=== PATIENT | male | born 1950 | race Caucasian/White ===

== ENCOUNTER → 2016-06-23 | Day surgery (SDC) | payer MEDICARE ==
[~2016-06-23] VITALS: Ht 172.7 cm; Wt 64.5 kg
[~2016-06-23] MED LIST: ACETAMINOPHEN 500 MG CPLT PO PRN; ATROPINE SULFATE 1% OPHT SOLN 2 ML BTL ONE; BALANCED SALT SOLN OPHT IRRIG 15 ML BTL ONE; CHLORHEXIDINE GLUCONATE 2 % 1 PACK (2 CLOTHS) TOPICAL PRN; DEXAMETHASONE SOD PHOS 4 MG/ML VIAL ONE; DO NOT ADM ANY ANTICOAGULANT DRUGS PRN; EPINEPHrine HCL (1:1000) 1 MG/ML VIAL ONE; INSULIN HUMAN REGULAR 1,000 UNITS/10 ML VIAL SQ PRN; LACTATED RINGER'S 1000 ML INJ 1,000 ML IV ONE; LACTATED RINGER'S 1000 ML IV PRN; MACR100C2 PO; METOPROLOL TARTRATE 25 MG TAB PO PRN; ONDANSETRON HCL 4 MG/2 ML VIAL IM PRN; POVIDONE IODINE 5% (ANTISEPSIS KIT) 4 APPLICATIONS EACH NARE PRN; PROPOFOL 200 MG/20 ML AMP IV ONE; SODIUM CHLORID 0.9% 500 ML IV PRN; STERILE WATER FOR INJ 20 ML VIAL ONE; TOBRAMYCIN/DEXAMETHASONE OPTH OINT 3.5 GM TUBE ONE; TRIAMCINOLONE ACETONIDE/PF 40 MG/ML OPTH VIAL ONE; TROPICAMIDE 1% OPHT SOLN 15 ML BTL ONE; ceFAZolin INJ 1,000 MG VIAL ONE; ePHEDrine/NS 25 MG/5 ML SYR IV ONE; fentaNYL CITRATE 250 MCG/5 ML AMP ONE; oxyCODONE/ACETAMINOPHEN 5 MG/325 MG TAB PO PRN
[2016-06-23 09:56] VITALS: BP 144/84; PULSE 62; RESP 18; O2SAT 98
[2016-06-23 10:40] LABS: AUTOMATED NEUTROPHIL # 3.7 TH/MM3 (1.8-7.7); BASOPHIL # 0.1 TH/MM3 (0-0.2); EOSINOPHIL # 0.4 TH/MM3 (0-0.4); EOSINOPHIL % 5.4 % (0.0-4.0); HEMATOCRIT 42.6 % (39.0-51.0); HEMO FLAGS DIFF FINAL; LYMPH % 29.3 % (9.0-44.0); MEAN CELL VOLUME 91.4 FL (80.0-100.0); MEAN CORPUSCULAR HEMOGLOBIN 31.3 PG (27.0-34.0); MEAN CORPUSCULAR HGB CONC 34.2 % (32.0-36.0); MONO % 10.8 % (0.0-8.0); NEUT % 53.5 % (16.0-70.0); PLATELET COUNT 274 TH/MM3 (150-450); RED BLOOD COUNT 4.66 MIL/MM3 (4.50-5.90); RED CELL DISTRIBUTION WIDTH 12.9 % (11.6-17.2)
[2016-06-23] MEDS: PHENYLEPHRINE HCL 2.5% OPTH SOLN 2 ML BTL LEFT EYE SCH ×3 (11:28→12:05)
[2016-06-23] MEDS: CYCLOPENTOLATE HCL 1% OPHT SOLN 2 ML BTL LEFT EYE SCH ×3 (11:28→12:05)
[2016-06-23] MEDS: ATROPINE SULFATE 1% OPHT SOLN 5 ML BTL LEFT EYE SCH ×3 (11:28→12:05)
[2016-06-23] MEDS: TROPICAMIDE 1% OPTH SOLN 2 ML BTL LEFT EYE SCH ×3 (11:28→12:05)
--- NOTE | 2016-06-23 15:12 | EKG ---
Date Performed: 06/23/2016 Time Performed: 09:33:14 PTAGE: 65 years EKG: SINUS BRADYCARDIA BORDERLINE ECG NO PREVIOUS TRACING DOCTOR: Adelfo De La Torre Interpretating Date/Time 06/23/2016 15:10:42
[2016-06-23 16:05] VITALS: BP 158/84; PULSE 65; RESP 18; TEMP 98.5; O2SAT 99
--- NOTE | 2016-06-24 20:57 | MP ---
cc: CHANTELLE GARDNER MD DATE OF SURGERY 06/23/16 PREOPERATIVE DIAGNOSIS Rhegmatogenous retinal detachment, left eye. POSTOPERATIVE DIAGNOSIS Rhegmatogenous retinal detachment, left eye. PROCEDURE Trans pars plana vitrectomy with gas fluid exchange and endolaser and laser indirect photocoagulation, left eye. SURGEON Dr. Vilma Gardner ANESTHESIA General laryngeal mask anesthesia INDICATIONS Mr. Pink is a 65-year-old gentleman who experienced a sudden onset of floaters in his left eye and was examined yesterday and found to have a vitreous hemorrhage along with an inferotemporal retinal detachment with a single break. The patient wished to proceed electively with vitrectomy to remove the floaters and repair the retinal detachment. Risks and benefits of surgery were discussed with the patient and no guarantee was made as to visual outcome. PROCEDURE IN DETAIL He is brought to [facility] operating room one and placed on the operating table. Appropriate anesthesia monitoring devices were applied and he was placed under general anesthesia using a laryngeal mask. The left eye was identified as the operative site then prepped and draped in the usual and sterile fashion. A lid speculum was placed. Using the Corey 23-gauge vitrectomy system, the trocar cannulas were placed 3-1/2 mm posterior to the limbus after first displacing the conjunctiva and with a beveled entrance. The first was placed at approximately 3 o'clock and verified to be in the posterior chamber. An infusion cannula was affixed to it and it was turned on. Two additional trocar cannulas were placed in similar fashion at 10 and 2 o'clock. The eye was entered with the Endoilluminator light pipe and vitrectomy cutter and, using the flat contact lens, a core vitrectomy was carried out. The flat contact lens was then exchanged for the BIOME wide angle viewing system and the more peripheral vitreous out to the vitreous base was trimmed including vitreous to the lip of the horseshoe tear at approximately 5 o'clock. Endolaser photocoagulation was placed around the periphery as well as laser indirect delivery of laser after an air-fluid exchange. A total of 1228 laser spots were placed with a power of 300 milliwatts in 0.1-second exposure. The air was then exchanged out for a 24% mixture of SF6 gas after which the cannulas were removed one by one with tamponade of the site with a cotton swab and diathermy to the overlying conjunctival incision. Last to go was the infusion cannula and this left the eye with good pressure and no visible air leaks. Atropine drops were placed on the cornea followed by injection of Ancef 125 mg in 0.5 ml and Decadron 2 mg in 0.5 ml. A lid speculum was removed and the patient was undraped. TobraDex ointment was placed on the cornea and then the left eye was patched and shielded. The patient had the laryngeal mass removed in the room and was returned to recovery in good condition laying on his right side. MD KIARA Campos/ /2:42 PM /8:45 PM
== END | disposition home or self-care (01) ==
LOC: HSDC 08:58
PROVIDERS: ATTEND Ophthalmology
DX: H33.012 Retinal detachment with single break, left eye (principal); R94.31 Abnormal electrocardiogram [ECG] [EKG]; I10 Essential (primary) hypertension
CPT/HCPCS: 00145; 67108; 85025; 93005; J0171; J0690; J1100; J3010; J7120; J3300